=== PATIENT | female | born 1960 | race Caucasian/White ===

== ENCOUNTER 2017-08-13 10:48 | Emergency (ER) | payer OTHER ==
[2017-08-13] MEDS: IBUPROFEN 800 MG TAB PO (12:50)
== END 2017-08-13 13:24 | disposition home or self-care (01) ==
LOC: E/R 10:48
DX: R07.9 Chest pain, unspecified (principal); I10 Essential (primary) hypertension; Z79.82 Long term (current) use of aspirin
CPT/HCPCS: 71045; 93005; 99284-25

== ENCOUNTER 2018-07-29 07:38 | Day surgery (SDC) | payer OTHER ==
[2018-07-29] MEDS ORDERED: PROPOFOL 60 ML (09:56)
== END 2018-07-29 12:57 | disposition home or self-care (01) ==
LOC: GIL 07:38
DX: R19.5 Other fecal abnormalities (principal); D12.7 Benign neoplasm of rectosigmoid junction; K64.8 Other hemorrhoids; K29.50 Unspecified chronic gastritis without bleeding; I25.10 Atherosclerotic heart disease of native coronary artery without angina pectoris
CPT/HCPCS: 43239; 88305; 88312